=== PATIENT | male | born 1990 | race Caucasian/White ===

== ENCOUNTER 2019-03-10 16:48 | Emergency (ER) | payer OTHER ==
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
[2019-03-10] MEDS ORDERED: TETANUS/DIPHTHERIA/PERTUSSIS 0.5 ML SYRINGE IM ONE (17:12)
[2019-03-10 18:02] VITALS: BP 124/75
== END 2019-03-10 18:02 | disposition home or self-care (01) ==
LOC: ED 16:48
DX: S91.011A Laceration without foreign body, right ankle, initial encounter (principal); W22.8XXA Striking against or struck by other objects, initial encounter; Y93.89 Activity, other specified; Y92.008 Other place in unspecified non-institutional (private) residence as the place of occurrence of the external cause; Z23 Encounter for immunization
CPT/HCPCS: 12001; 90471

== ENCOUNTER 2019-04-30 13:39 | Outpatient (CLI) | payer SELFPAY | END 2019-04-30 13:40 | disposition EMS.NT | LOC: EMS 13:39 | PROVIDERS: ATTEND Surgery | DX: M79.639 Pain in unspecified forearm (principal); V49.40XA Driver injured in collision with unspecified motor vehicles in traffic accident, initial encounter; Y92.413 State road as the place of occurrence of the external cause ==

== ENCOUNTER 2019-04-30 17:08 | Emergency (ER) | payer OTHER ==
[2019-04-30 17:18] VITALS: BP 121/84
[2019-04-30] MEDS ORDERED: IBUPROFEN 800 MG TABLET PO STA (18:00)
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
== END 2019-04-30 18:28 | disposition home or self-care (01) ==
LOC: ED 17:08
DX: M54.2 Cervicalgia (principal); M62.838 Other muscle spasm; S30.1XXA Contusion of abdominal wall, initial encounter; V43.52XA Car driver injured in collision with other type car in traffic accident, initial encounter
CPT/HCPCS: 99282; A9270